=== PATIENT | male | born 1955 | race Caucasian/White ===

== ENCOUNTER 2017-11-28 19:48 | Emergency (ER) | payer OTHER, MEDICARE ==
[2017-11-28 20:09] LABS: BASOPHILS % 1.3 (0.0-1.5); EOSINOPHILS % 1.8 % (0.0-6.8); MEAN CORPUSCULAR HEMOGLOBIN 36.1 pg (28.0-34.0); MEAN CORPUSCULAR VOLUME 110.1 fl (80.0-100.0); MONOCYTES % 6.5 % (0.0-11.0); NEUTROPHILS # 5.5 # k/uL (1.4-7.7)
[2017-11-28] MEDS: 0.9 % SODIUM CHLORIDE 1,000 ML IV ONE ×3 (20:10→22:25)
--- NOTE | 2017-11-28 20:15 | ED Physician Documentation ---
General Adult - HISTORIAN Historian: patient, paramedics - [facility] Chief Complaint: General Adult Further Comments: yes (62 year old male patient brought in via EMS from home. EMS was called by sister, found patient on the floor, unsure of how long patient was in the floor or when patient fell. Patient denies any injury or pain. States "I want to go home". Patient is a poor historian.) - ROS CONST: weakness, other EYES/ENT: none CVS/RESP: none GI/: none MS/SKIN/LYMPH: none NEURO/PSYCH: other (increased confusion per family) - PAST HX Past History: A-Fib, hypertension, other Allergies/Adverse Reactions: Allergies Allergy/AdvReac Type Severity Reaction Status Date / Time No Known Allergies Allergy Verified 11/28/17 19:59 Home Medications: Ambulatory Orders Medication Instructions Recorded Gabapentin [Neurontin] 300 mg PO QID #120 capsule 05/28/16 Furosemide 20 mg PO DAILY 11/28/17 Hydrochlorothiazide 25 mg PO DAILY 11/28/17 Metoprolol Tartrate [Lopressor] 100 mg PO BID 11/28/17 Omeprazole [Prilosec] 40 mg PO DAILY 11/28/17 - SOCIAL HX Smoking History: cigarettes Alcohol Use: heavy (4-5 gallons per week) - FAMILY HX Family History: No - VITAL SIGNS Vital Signs: Vital Signs Temp Pulse Resp BP Pulse Ox 170/101 05/28/16 16:12 - REVIEWED ASSESSMENTS Nursing Assessment Reviewed: Yes Vitals Reviewed: Yes Progress - Progress Progress: Denies any injury or pain. Sister at bedside - reports increased confusion, unsteady gait. Sister states patient has not drank all week. Usually drinks 4-5 gallons of whisky a week. 2124 Reviewed lab results with patient and sister. Recommended transfer to higher level of care for nephrology consult. Family prefers [facility] [address] Grant, requested Trop. Reviewed lab including BUN and CR 7.00. Will not replace K at this time due to Cr 7.00, deferred to [facility]. Vital signs stable at discharge. - EKG/XRAY/CT EKG: rhythm (Afib, Rate 76) ED Results Lab/Radiology - Radiology Radiology Impressions: CT head without contrast History: Confusion Technique: Images through the brain were obtained without contrast. Findings: No mass, midline shift, obstructive hydrocephalus or acute intracranial hemorrhage is present. The ventricles are normal. No extra axial fluid collection is identified. Impression: No acute intracranial process. Electronically signed on Nov 28, 2017 8:52:54 PM BALLET SOLOIST by: Benjamín Ramirez - Orders Orders: ED Orders Category Date Time Status Continuous EKG monitoring Q30M Care 11/28/17 19:55 Active Continuous Pulse Oximetry Q30M Care 11/28/17 19:[address] IV Lock 1T Care 11/28/17 19:54 Active ALCOHOL MEDICAL USE ONLY Stat Lab 11/28/17 20:03 Received CBC/PLATELET/DIFF Stat Lab 11/28/17 20:03 Received CKMB Stat Lab 11/28/17 20:03 Received DRUG SCREEN URINE MEDICAL ONLY Routine Lab 11/28/17 Ordered ck [CREATINE KINASE] Stat Lab 11/28/17 Ordered 0.9 % Sodium Chloride [Normal Saline] 1,000 ml Med 11/28/17 19:54 Discontinued IV NOW EKG WITH COMPARISON Stat Ther 11/28/17 19:55 Ordered General Adult Physical Exam - PHYSICAL EXAM GENERAL APPEARANCE: moderate distress EENT: eye inspection normal, GARTH, scleral icterus, pharyngeal erythema, dry mucous membranes RESPIRATORY: no resp distress, chest non-tender, breath sounds normal CVS: heart sounds normal, no murmur, no gallop, PMI nml, no JVD, irregularly irregular rhy ABDOMEN: soft, no organomegaly, normal bowel sounds, no abdominal bruit, no distension, other (distended, liver margins palpable) SKIN: warm/dry, jaundice EXTREMITIES: non-tender, normal range of motion, no evidence of injury, no edema , J, PARKING ATTENDANT NEURO: motor nml, sensation nml, other (oriented x 2, follows simple commands; MAEX4, no focal deficit. ) Discharge Clincal Impression: ETOH abuse, Hypokalemia, Confusion, Total bilirubin, elevated Acute renal failure Qualifiers: Acute renal failure type: unspecified Qualified Code(s): N17.9 - Acute kidney failure, unspecified Referrals: Jung Veliz [Primary Care Provider] - 2 Days Condition: Stable Disposition: 02 XFER SHT-TRM HOSP Decision to Admit: NO Decision Time: 21:43
[2017-11-28 22:33] VITALS: BP 107/66
--- NOTE | 2017-11-28 23:42 | Diagnostic Imaging Report ---
ARSEN DUVALL (LUIS) - ER [facility] [address] [facility] [address] [address] Report Submission Date: Nov 28, 2017 8:52:54 PM FLOAT OPERATOR Patient Study Name: RADHA BYNUM Date: Nov 28, 2017 8:33:32 PM FLOAT OPERATOR Modality Type: CT\SR Gender: M Description: CT BRAIN W/O CONTRAST : 59 Institution: [facility] Physician: ARSEN DUVALL) - ER CT head without contrast History: Confusion Technique: Images through the brain were obtained without contrast. Findings: No mass, midline shift, obstructive hydrocephalus or acute intracranial hemorrhage is present. The ventricles are normal. No extra axial fluid collection is identified. Impression: No acute intracranial process. Electronically signed on Nov 28, 2017 8:52:54 PM FLOAT OPERATOR by: Benjamín RICK
== END 2017-11-28 22:31 | disposition short-term general hospital (02) ==
LOC: ED 19:48
DX: N17.9 Acute kidney failure, unspecified (principal); F10.10 Alcohol abuse, uncomplicated; E87.6 Hypokalemia; R41.0 Disorientation, unspecified; F17.210 Nicotine dependence, cigarettes, uncomplicated; I48.91 Unspecified atrial fibrillation; I10 Essential (primary) hypertension
CPT/HCPCS: 70450; 80053; 80320; 82550; 82553; 84484; 85025; 96365; 99284; G0480; J7030; S1016

== ENCOUNTER 2018-06-05 15:15 | Emergency (ER) | payer OTHER, MEDICARE | END 2018-06-05 15:45 | LOC: ED 15:15 | DX: Z02.89 Encounter for other administrative examinations (principal) ==

== ENCOUNTER 2019-05-07 12:17 | Emergency (ER) | payer MEDICARE, OTHER ==
--- NOTE | 2019-05-07 12:20 | ED Physician Documentation ---
General Adult - HISTORIAN Historian: patient - HPI Stated Complaint: right knee pain after "pop" two days ago Chief Complaint: Lower Extremity Problem Onset: days ago (2) Timing: still present Severity: mild (4-5/10) Further Comments: yes (He states two days ago he felt a pop on his right knee while working in the garden. He has had knee pain since (indicates the pain is top of knee and right lateral side) . He has had some OTC meds since this happened not today. Denies any relief from the OTC meds. He has not tried ice. He is using a knee brace he had. No loss of sensation and pain is increased with standing and bearing weight. THe pain at the time of bearing weight is described as stabbing) - ROS CONST: no problems MS/SKIN/LYMPH: none - PAST HX Past History: hypertension Allergies/Adverse Reactions: Allergies Allergy/AdvReac Type Severity Reaction Status Date / Time No Known Allergies Allergy Verified 05/07/19 12:31 Home Medications: Ambulatory Orders Medication Instructions Recorded Gabapentin [Neurontin] 300 mg PO QID #120 capsule 05/28/16 Furosemide 20 mg PO DAILY 11/28/17 Hydrochlorothiazide 25 mg PO DAILY 11/28/17 Metoprolol Tartrate [Lopressor] 100 mg PO BID 11/28/17 Omeprazole [Prilosec] 40 mg PO DAILY 11/28/17 - SOCIAL HX Smoking History: cigarettes Alcohol Use: occasionally Drug Use: none - FAMILY HX Family History: No - VITAL SIGNS Vital Signs: Vital Signs Temp Pulse Resp BP Pulse Ox 107/66 11/28/17 22:31 - REVIEWED ASSESSMENTS Nursing Assessment Reviewed: Yes Vitals Reviewed: Yes ED Results Lab/Radiology - Radiology Radiology Impressions: Exam: Right knee. History: Pain. AP, lateral and sunrise view of the right knee are submitted. No signs of fracture or dislocation is seen. No bony erosions are seen. No soft tissue abnormalities identified. Impression: No bony abnormality. Electronically signed on May 07, 2019 12:51:37 PM CDT by: Joseph Sims General Adult Physical Exam - PHYSICAL EXAM GENERAL APPEARANCE: no distress EENT: eye inspection normal, no signs of dehydration NECK: normal inspection RESPIRATORY: no resp distress, chest non-tender, breath sounds normal CVS: reg rate & rhythm, heart sounds normal, equal pulses ABDOMEN: soft, normal bowel sounds, no distension BACK: normal inspection, no CVA tenderness SKIN: warm/dry, normal color EXTREMITIES: non-tender, other (pain on right knee (no pain with palpation) no redness, no warmth, no swelling ) NEURO: oriented X3 Discharge Clincal Impression: Right knee pain Qualifiers: Chronicity: acute Qualified Code(s): M25.561 - Pain in right knee Referrals: Jung Veliz [Primary Care Provider] - 2 Days Comments: 1. Wear brace for comfort 2. ICE and elevate 3. OTC meds as directed as needed for pain 4. See PCP in 2 days for follow up 5. Return to ER for any increasing concerns Condition: Stable Disposition: 01 HOME, SELF-CARE Decision to Admit: NO Date of Decison to Admit: 05/07/19 Decision Time: 12:58
[2019-05-07 12:41] VITALS: BP 181/101
[2019-05-07] MEDS ORDERED: KETOROLAC TROMETHAMINE 60 MG/2 ML VIAL IM ONE (12:52)
--- NOTE | 2019-05-07 12:56 | Diagnostic Imaging Report ---
AMY CERON [facility] [address] [facility] [address], [place]. [address] Report Submission Date: May 07, 2019 12:51:37 PM CDT Patient Study Name: DOLORES BYNUM Date: May 07, 2019 12:32:30 PM CDT Modality Type: DX Gender: M Description: KNEE 3 VIEWS : 59 Institution: [facility] Physician: AMY CERON Exam: Right knee. History: Pain. AP, lateral and sunrise view of the right knee are submitted. No signs of fracture or dislocation is seen. No bony erosions are seen. No soft tissue abnormalities identified. Impression: No bony abnormality. Electronically signed on May 07, 2019 12:51:37 PM CDT by: Joseph RICK
== END 2019-05-07 13:20 | disposition home or self-care (01) ==
LOC: ED 12:17
DX: M25.561 Pain in right knee (principal); X58.XXXA Exposure to other specified factors, initial encounter; Y93.89 Activity, other specified; Y92.007 Garden or yard of unspecified non-institutional (private) residence as the place of occurrence of the external cause; Y99.8 Other external cause status
CPT/HCPCS: 73562; 96372; 99283; 99284; J1885